=== PATIENT | female | born 1965 | race Caucasian/White ===

== ENCOUNTER 2019-11-05 15:01 | Observation (INO) | payer OTHER, SELFPAY ==
[2019-11-05] VITALS (7 sets, daily range): BP systolic 124–162; BP diastolic 76–94; PULSE 87–102; RESP 15–18; TEMP 36.1–36.9; O2SAT 96–100; BMI 24.2; BMI 24.5
--- NOTE | 2019-11-05 15:24 | CT_ITS ---
STUDY: CT BRAIN WITHOUT CONTRAST REASON FOR EXAM: Female, 54 years old. Headache nausea and vomiting RADIATION DOSAGE (If Supplied By Facility): CTDIvol = ( 60.81 ) mGy, DLP = ( 1067.08 ) mGycm TECHNIQUE: Transaxial CT imaging of the brain was performed without administration of intravenous contrast material. Individualized dose optimization techniques were used for this CT. COMPARISON: No relevant priors. FINDINGS: There are minor bilateral right greater than left ill-defined hypodensities in the lateral aspects of the lentiform nuclei/external capsules. These are not definitively characterize. There is no acute intracranial hemorrhage, extra parenchymal fluid collections, hydrocephalus or herniation. The skull is intact. CT/Brain/Head without Contrast IMPRESSION: 1. Questionable findings bilaterally in the lentiform nuclei, possibly minimal ischemic change versus dilated perivascular spaces. In the presence of continuing neurologic symptoms MRI can be utilized for definitive evaluation. Electronically Signed: Jake Sweet, at 16:12 EST Tel , Service support ,
--- NOTE | 2019-11-05 15:27 | EKG12_ITS ---
Test Reason : HEADACHE Blood Pressure : / mmHG Vent. Rate : 093 BPM Atrial Rate : 093 BPM P-R Int : 168 ms QRS Dur : 108 ms QT Int : 374 ms P-R-T Axes : 035 -29 030 degrees QTc Int : 465 ms Normal sinus rhythm Normal ECG Confirmed by FRANCES GREER ([id number]), proposal editor MORELIA OLIVIER ([id number]) on 11/07/2019 3:13:18 PM Referred By: GARRICK Confirmed By:FRANCES GREER
--- NOTE | 2019-11-05 15:44 | ED.VIS.HA ---
History of Present Illness Chief Complaint: Headache Narrative: Patient presenting for evaluation secondary to headache. Patient reports that she was dealing with sinus type symptoms early last week, but then had improvement. Patient reports that most of yesterday and today she was actually doing well but then at about noon she had a relatively precipitous onset of a headache. She states that this is generalized in the front of her head as well as her neck, is a continuous aching type pain that has been associated with some nausea and dry heaves. Patient denies any visual changes numbness weakness or speech difficulty. She denies any recent head injuries fevers. Patient states that she is had headaches in the past, but typically they are not associated with nausea such as this. She reports that she had a past history of hypertension, but changed her diet and was able to come off of her hypertensive medications. She denies any personal family history of connective tissue disease or aneurysms. No real exacerbating relieving factors with this headache. Review of systems otherwise negative. Past Medical History - Allergies and Home Meds Allergies/Adverse Reactions: Allergies No Known Allergies Allergy (Verified 11/05/19 15:04) Primary Care Physician: NOT,DEFINED [NON-STAFF] - Past Medical History: - - Hypertension Smoking Status: Never smoker Review of Systems All systems negative except as indicated General: Denies: Chills, Fever, Sweats Eyes: Denies: Visual changes - bilaterally, Diplopia ENT: Denies: Rhinorrhea, Sore throat Cardiovascular: Denies: Chest pain, Palpitations Respiratory: Denies: Dyspnea, Cough, Dyspnea on exertion Gastrointestinal: Reports: Nausea, Vomiting Genitourinary: Denies: Dysuria, Hematuria, Frequency Musculoskeletal: Reports: Neck pain Skin: Denies: Rash, Wounds Neurological: Reports: Headache Physical Exam Vital Signs/Narrative: Vital Signs Temp Pulse Resp BP Pulse Ox 11/05/19 15:01 96.9 F L 87 16 162/91 H 99 Inital Vital Signs reviewed: Yes General: Well nourished, Well developed Head: NC, AT. Negative for: Temporary Artery Tenderness, Vesicular Rash, Sinus Tenderness Eyes: Perrl, EOMI, - - Normal funduscopy bilaterally with no evidence of retinal hemorrhages or papilledema ENT: Moist mucous membranes, No rhinorrhea Neck: Supple, No Lymphadenopathy, No JVD, Nontender, No Meningismus Cardiovascular: Regular rate, Regular rhythm, No murmurs Respiratory: No distress, CTA bilaterally, Chest nontender Abdomen: Soft, Nontender, Nondistended, Normal bowel sounds Back: Nontender, Normal Inspection Extremities: Nontender, No edema Skin: Normal color, No rash Neuro: Alert, Oriented x3, Cranial nerves II-XII grossly intact, Normal Strength, Normal Sensation, Normal DTR, Normal Gait Psychological: Normal affect Diagnostic/Tx/Re-eval - EKG Initial EKG Interpretation: - - Sinus rhythm at [address] segments normal T waves normal OR and QTc intervals no evidence of acute ischemia or arrhythmia. - Medical Decision Making Patient presented for evaluation secondary to headache. She presented within 3 hours, and reported the headache is being relatively sudden in onset so CT imaging was performed. This showed evidence of changes in the patient's bilateral lentiform nuclei, that could either be early ischemic versus perivascular changes. Patient was given Reglan and Benadryl. Radiology recommended MRI and neurology follow-up. Patient will be admitted for further work-up and treatment. ED Disposition - Plan for ED Patient: Disposition: Acute Care [facility] Diagnosis: Headache, Abnormal CT scan of head Referrals: NOT,DEFINED [NON-STAFF] -
[2019-11-05] MEDS: 0.9% Normal Saline 1,000 ML 999 ML IV (15:47)
--- NOTE | 2019-11-05 16:46 | MRI_ITS ---
STUDY: MRI BRAIN WITH AND WITHOUT CONTRAST REASON FOR EXAM: Female, 54 years old. H/A, nausea, abnormal CT. TECHNIQUE: Standardized multiplanar fat and water weighted pulse sequences were obtained. IV Yes YES was administered for the contrast portion of the examination. COMPARISON: 05 November 2019 FINDINGS: Brain parenchyma and related structures are normal. The CT finding represents bilateral benign incidental perivascular spaces, a common finding without clinical adverse effects. MRI/Brain W/WO Contrast IMPRESSION: 1. Normal brain. 2. Benign incidental finding without significance. Electronically Signed: Jake Sweet, at 19:53 EST Tel , Service support ,
[2019-11-05] MEDS: DiphenhydrAMINE 50 MG/ML Syringe 25 MG IV (16:56)
[2019-11-05] MEDS: Metoclopramide 10 MG/2 ML Vial IV (16:56)
[2019-11-05 16:58] LABS: Absolute Lymphocyte Count 0.84 X10^3/uL (0.83-4.51); Basophil# 0.04 X10^3/uL; Basophil% 0.4 % (0-1); Eosinophil# 0.01 X10^3/uL; Eosinophils% 0.1 % (0-5); Hematocrit 40.3 % (37-47); Hemoglobin 13.7 g/dL (12.0-15.0); Lymphocyte # 0.84 X10^3/ul (4.0); Lymphocyte % 9.1 % (19-41); Mean Corpuscular Volume 91.2 fL (81-99); Mean Platelet Vol. 10.5 fl (6.2-12.0); Monocyte# 0.31 X10^3/uL; Monocyte% 3.3 % (0-10); NRBC Flagged by Analyzer 0 % (0-5); Neutrophil # 7.97 X10^3/uL (2.7-7.7); Neutrophil % 86.1 % (47-70); Platelet Count 286 K/mm3 (150-450); RBC Distribution Width CV 11.9 % (11.6-14.6); RBC Distribution Width SD 39.7 fl (35.1-43.9); Red Blood Count 4.42 M/mm3 (4.2-5.4); White Blood Count 9.3 K/mm3 (4.4-11.0)
--- NOTE | 2019-11-05 17:03 | HP.PCM_ITS ---
History of Present Illness Date of Admission: 11/05/19 Chief Complaint: headache The patient is a 54 year old F with no significant past medical history. She was admitted through the ED on 11/05/2019 with a complaint of headache. Patient is originally from [place] and drove down to [place] from [place] 1 day ago for some meetings. She states she had a initial meeting in [facility] and drove down to [place] for a meeting. While some [place] she suddenly started having a severe frontal headache which she thought was due to sinus congestion. She states she had similar headaches which she always thought was due to sinus infections. Headache however persisted and did not improve. She had associated photophobia but denied any blurred vision, any nausea vomiting, any weakness in any extremity, any lightheadedness or dizziness, she did admit to mild neck pain. She has not had any recent travels out of the country or anywhere else apart from being in [place]. She had no assisted fever or chills. Review of symptoms otherwise negative. On admission in the ED, vitals were significant for blood pressure of 152/94 with pulse rate of heart rate and respiratory rate of 15. She was saturating at 100% on room air. Chemistry showed sodium of 135 and glucose of 126 but was otherwise unremarkable. CBC was unremarkable. CT of the brain showed questionable findings bilaterally in the lentiform nuclei possibly minimal ischemic change versus dilated perivascular spaces. She has been admitted to manage for headache of unclear etiology. 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 pertinent TE[employer]ER [employer]OTIONALLY DIST[employer] history Lives: Spouse/ Significant Other Smoking Status: Never smoker Alcohol: Occasional Drugs: None - *Family History Maternal History Items: Diabetes Paternal History Items: No pertinent history Review of Systems Constitutional: Denies: Chills, Fever, Malaise, Weakness, Weight Change Eyes: Denies: Blurred vision, Double vision, Drainage, Pain, Redness, Vision Change HEENT: Denies: Head Aches, Sinus Congestion, Sinus Drainage Cardiovascular: Denies: Chest Pain, Palpitations Respiratory: Denies: Cough, Shortness of Breath, Shortness of breath at rest, Shortness of breath upon exertion, Sputum production Gastrointestinal: Denies: Abdominal Pain, Nausea, Vomiting Genitourinary: Denies: Dysuria Musculoskeletal: Denies: Joint Pain, Joint Tenderness Skin: Denies: Rash, Wounds Neurological: Reports: Headaches. Denies: Blurred vision, Double vision, Change in Speech, Slurred speech, Confusion, Focal weakness, Numbness, Tingling, Tremor, Seizures Psychiatric: Denies: Anxiety, Depression, Homicidal Ideations, Suicidal Ideations Hematologic/ Lymphatic: Denies: Easy Bruising, Easy Bleeding VTE Information - Inpt Only VTE Present on Admission: No VTE Pharm Prophylaxis ordered?: Yes Patient Problems: Active and Suspected Problems Headache (Acute) Abnormal CT scan of head (Acute) - Physical Exam Vitals/I&O's: Vital Signs Temp Pulse Resp BP Pulse Ox 96.9 F L 100 16 152/94 H 100 11/05/19 15:01 11/05/19 16:58 11/05/19 16:58 11/05/19 16:58 11/05/19 16:58 Oxygen Delivery Method Room Air Weight: 150 lb Body Mass Index (BMI) 24.2 General: Alert, Oriented x3, Cooperative, No apparent distress HEENT: Atraumatic, PERRLA, EOMI, Normocephalic Oral: Moist Mucosa Neck: Supple, No JVD, Negative Carotid Bruits Lungs: Clear to auscultation, Normal air movement, No rhonchi, No wheeze, No rales Cardiovascular: Regular rate, Regular Rhythm, Normal S1, Normal S2, No murmurs Abdomen: Bowel Sounds Present, Soft, Non Tender, Non-Distended, No Hepato- splenomegaly Extremities: No clubbing, No cyanosis, No edema, Capillary Refill Less than 3 Seconds Skin: No rashes, No breakdown Musculoskeletal: No Tenderness to Palpation of Joints or Extremities Lymphatic: No Cervical, Supraclavicular, or Inguinal Adenopathy Neurological: Cranial nerves II-XII grossly intact, Neuro grossly intact, Motor Exam 5/5 strength throughout, Muscle tone normal, Sensory exam intact to light touch and pain, - - Kernig's and Brudzinksi's signs are negative Psych/Mental Status: Normal Affect, Appropriate, Alert and oriented to time, place, person, mood and affect Laboratory Results 11/05/19 15:48: WBC 9.3, RBC 4.42, Hgb 13.7, Hct 40.3, MCV 91.2, MCH 31.0, MCHC 34.0, RDW Std Deviation 39.7, RDW Coeff of Cristhian 11.9, Plt Count 286, MPV 10.5, Immature Gran % (Auto) 1.000 H, Neut % (Auto) 86.1 H, Lymph % (Auto) 9.1 L, Grayson % (Auto) 3.3, Eos % (Auto) 0.1, Baso % (Auto) 0.4, Absolute Neuts (auto) 8.0 H, Absolute Lymphs (auto) 0.84, Nucleated RBC % 0 11/05/19 15:48: Sodium Pending, Potassium Pending, Chloride Pending, Carbon Dioxide Pending, Anion Gap Pending, BUN Pending, Creatinine Pending, Est GFR (MDRD) Af Amer Pending, Est GFR (MDRD) Non-Af Pending, BUN/Creatinine Ratio Pending, Glucose Pending, Calcium Pending Diagnostic Data Brain CT 11/05/19 15:24 IMPRESSION: 1. Questionable findings bilaterally in the lentiform nuclei, possibly minimal ischemic change versus dilated perivascular spaces. In the presence of continuing neurologic symptoms MRI can be utilized for definitive evaluation. Electronically Signed: Jake Kee, at 16:12 EST Tel , Service support , Assessment/Plan All Active Problems Headache (Acute) Abnormal CT scan of head (Acute) 54-year-old female admitted with a complaint of headache. 1. Migranoid headache * etiology is unclear. * CT of the head shoed questionable findings bilaterally in the lentiform nuceli, possibly minimal ischemic change vs dilated perivascular spaces * admit to Med surg with telemetry * IV toradol and IV solumedrol for headache. Tylenol prn * MRI of brain ordered and results are pending * consult neurology once MRI results are in. * fall precautions DVT prophylaxis: lovenox Code Visit OBSV E&M: 59501 Initial observation care L2
[2019-11-05 17:07] LABS: Anion Gap 7 (5-15); BUN 15 mg/dL (7-18); BUN/Creat Ratio 21.4 RATIO (10-20); Calcium,Total 9.4 mg/dL (8.5-10.1); Chloride 102 mmol/L (98-107); EST Glomerular Filtration Rate 92 mL/min (>60); Est Glom Filt Rate - Afr Amer 111 mL/min (>60); Estimated Creatinine Clearance 85.01 ml/min; Glucose 126 mg/dL (74-106); Potassium 3.8 mmol/L (3.5-5.1); Sodium Level 135 mmol/L (136-145)
[2019-11-05] MEDS: 0.9% Normal Saline 1,000 ML 125 ML IV (20:06)
[2019-11-05] MEDS: Ketorolac 30 MG/ML Syringe IV (20:06)
--- NOTE | 2019-11-05 21:35 | NURSING ---
Tel Neuro called plan on 8-11am on 11-06-2019 for the consult.
[2019-11-05] MEDS: 0.9% Saline Lock 10 ML Syringe IV (22:53)
[2019-11-06] MEDS: Ketorolac 30 MG/ML Syringe IV ×2 (00:27→06:15)
[2019-11-06 02:00] VITALS: PULSE 95
[2019-11-06] MEDS: 0.9% Normal Saline 1,000 ML 125 ML IV (02:36)
[2019-11-06 02:38] VITALS: BP 121/78; PULSE 94; RESP 16; TEMP 36.9; O2SAT 97
[2019-11-06 06:00] VITALS: PULSE 82
[2019-11-06 06:58] LABS: Absolute Lymphocyte Count 0.88 X10^3/uL (0.83-4.51); Absolute Neutrophil Count 7.5 X10^3/uL (2.0-7.7); Basophil# 0.02 X10^3/uL; Basophil% 0.2 % (0-1); Hematocrit 39.5 % (37-47); Hemoglobin 13.2 g/dL (12.0-15.0); Lymphocyte # 0.88 X10^3/ul (4.0); Lymphocyte % 10.2 % (19-41); Mean Corp Hgb Conc 33.4 g/dL (32-36); Mean Corpuscular Hgb 30.2 pg (27.0-32.0); Mean Corpuscular Volume 90.4 fL (81-99); Mean Platelet Vol. 10.3 fl (6.2-12.0); Monocyte# 0.15 X10^3/uL; Monocyte% 1.7 % (0-10); NRBC Flagged by Analyzer 0 % (0-5); Neutrophil # 7.53 X10^3/uL (2.7-7.7); Neutrophil % 87.6 % (47-70); Platelet Count 290 K/mm3 (150-450); RBC Distribution Width CV 11.9 % (11.6-14.6); RBC Distribution Width SD 39.7 fl (35.1-43.9); Red Blood Count 4.37 M/mm3 (4.2-5.4); White Blood Count 8.6 K/mm3 (4.4-11.0)
[2019-11-06 07:17] LABS: Anion Gap 5 (5-15); BUN 11 mg/dL (7-18); BUN/Creat Ratio 14.5 RATIO (10-20); Calcium,Total 8.9 mg/dL (8.5-10.1); Chloride 111 mmol/L (98-107); Creatinine, Serum 0.76 mg/dL (0.55-1.02); EST Glomerular Filtration Rate 84 mL/min (>60); Est Glom Filt Rate - Afr Amer 102 mL/min (>60); Glucose 131 mg/dL (74-106); Potassium 3.9 mmol/L (3.5-5.1); Sodium Level 141 mmol/L (136-145)
[2019-11-06 08:04] VITALS: BP 142/95; PULSE 110; RESP 18; TEMP 36.9; O2SAT 100
--- NOTE | 2019-11-06 08:30 | NURSING ---
Addendum entered by Celena Hurd 11/06/19 08:35: Information given for Dr. Larsen to be notified of findings and to be able to speak with Dr. Smith. Original Note: Neuro-tele conference started at 0811 completed at this time with Dr. Aramis Smith MD. Assessment completed. Pt educated on migranes and of medications that can be taken to help- (NSAIDS, tylenol, excedrin) Also notified of need for f/u with PCP when home. Pt states that she only has 6-8 headaches /yr.
[2019-11-06] MEDS: 0.9% Saline Lock 10 ML Syringe IV ×2 (08:38→11:40)
--- NOTE | 2019-11-06 11:18 | DCINST_ITS ---
- Discharge Diagnoses Current Active Problems: Current Active and Chronic Problems Headache (Acute) Abnormal CT scan of head (Acute) You will use the following diet at home:: No restrictions Your food should be the consistency of: Regular Your liquids should be the consistency of: Regular/Thin Discharge Activity: Return to Normal Activity Weight Bearing Status: Full weight bearing Additional Instructions: You can take Excedrin for migrane Allergies/Adverse Reactions: Allergies No Known Allergies Allergy (Verified 11/05/19 15:04) Medications to take at Discharge NK 11/05/19 Primary Care Physician: NOT,DEFINED [NON-STAFF] - Please follow up with your Primary Care Physician in: in 2 weeks Test Results: Test results from this visit will be discussed in further detail at your follow- up appointment, if applicable.
[2019-11-06] MEDS: Aspirin 325 MG Tablet 650 MG PO (11:37)
--- NOTE | 2019-11-07 19:27 | DS.PCM_ITS ---
Discharge Date and Diagnosis Date of Admission: 11/05/19 Date of Discharge: 11/06/19 - Primary Discharge Diagnosis #1 acute on chronic migraine cephalgia Hospital Course and Treatment Operations: None Procedures: None Summary of Care Provided: The patient is a 54 year old F who was seen in the emergency room at [facility] with chief complaint of cephalgia. Patient had not had a diagnosis of migraine cephalgia made in the past, she has had headaches but they have been infrequent. Work-up in the emergency room included a CT of the brain which was questionable for minimal ischemic change versus dilated perivascular space. Patient's blood pressure was noted to be elevated at 152/94, blood work was essentially unremarkable. Patient was placed into observation status on MedSurg, she was given IV Toradol for headache and IV Solu-Medrol and she underwent an MRI of the brain which was unremarkable. She also underwent a consultation by tele-neurology who felt that she had a migraine cephalgia. On 11/06/2019, patient was seen and examined: On examination she appeared in good health and spirits. Vital signs as documented. Skin warm and dry and without overt rashes. Neck without JVD. Lungs clear. Heart exam notable for regular rhythm, normal sounds and absence of murmurs, rubs or gallops. Abdomen unremarkable and without evidence of organomegaly, masses, or abdominal aortic enlargement. Extremities nonedematous. Neuro: Cranial nerves II through XII are grossly intact, no focal motor deficits were noted, sensation to light touch and pinprick is intact. Psych: Patient is alert and oriented x3, she does not appear anxious or depressed On 11/06/2019, patient was discharged home in stable condition, I recommended that she follow-up with a PCP due to the fact she had not seen a family physician in years. I told her it was permissible to use Excedrin migraine to see if this would help any further migraines and I also told her that her family physician might recommend a triptan to use intermittently for migraines. - Physical Exam Vitals/I&O's: Vital Signs Temp Pulse Resp BP Pulse Ox 98.5 F 110 H 18 142/95 H 100 11/06/19 08:04 11/06/19 08:04 11/06/19 08:04 11/06/19 08:04 11/06/19 08:04 Oxygen Delivery Method Room Air Weight: 68.9 kg Body Mass Index (BMI) 24.5 Intake and Output for Last 24 Hours 11/05/19 11/06/19 11/07/19 23:59 23:59 23:59 Intake Total 1000 / 1400 2566.67 / 2566.67 Balance 1000 / 1400 2566.67 / 2566.67 Discharge Activity: Return to Normal Activity Weight Bearing Status: Full weight bearing Home Medications: Medications to take at Discharge NK 11/05/19 Primary Care Physician: NOT,DEFINED [NON-STAFF] - Please follow up with your Primary Care Physician in: in 2 weeks Disposition: Home Minutes spent on discharge:: 30 Patient Condition:: Stable Medical Necessity - Tobacco Use Smoking Status: Never smoker Tobacco Use: Non-smoker Meaningful Use Info Meaningful Use Diagnoses (Choose all that apply): None applicable Code Visit OBSV E&M: 00004 Observation care discharge
== END 2019-11-06 12:05 | disposition home or self-care (01) ==
LOC: ED 17:05 → MS3 17:06
PROVIDERS: Admitting Provider Student in an Organized Health Care Education/Training Program; Emergency Provider Emergency Medicine; Visit Provider Internal Medicine
DX: G43.909 Migraine, unspecified, not intractable, without status migrainosus (principal); I10 Essential (primary) hypertension; R94.8 Abnormal results of function studies of other organs and systems
CPT/HCPCS: 36415; 70450; 70553; 80048; 85025; 93005; 96361; 96374; 96375; 96376; 99218; 99284; A9575; J7030; A4216; G0378